=== PATIENT | female | born 1960 | race Caucasian/White ===

== ENCOUNTER → 2016-11-21 | Outpatient (CLI) | payer BC | LOC: KOH-I 11-16 09:00 | DX: Z13.820 Encounter for screening for osteoporosis (principal); R13.10 Dysphagia, unspecified; M81.0 Age-related osteoporosis without current pathological fracture; E04.2 Nontoxic multinodular goiter; Z78.0 Asymptomatic menopausal state | CPT/HCPCS: 70490; 76536; 77080 ==